=== PATIENT | male | born 1960 | race Caucasian/White ===

== ENCOUNTER → 2019-07-02 | Outpatient (CLI) | payer BC, SELFPAY ==
--- NOTE | 2019-07-02 08:00 | PROSBIL_PTH ---
PATIENT: JERAMY HOLLINGSWORTH LOC: [facility] U#:[id number] AGE/SX: 58/M ROOM: RE07/02/[address]: Dr. Nehemias Zelaya MD : 1960 BED: DIS: 07/02/2019 SPEC #: [id number] RECD: 07/02/19 17:14 STATUS: KRISTIE REQ #: [id number] KARI: 07/02/19 08:[address]: Nehemias Zelaya DEPT: SURGICAL PATHOLOGY RECD BY: Rafael Gallardo ENTERED: 07/03/19 14:07 SP TYPE: PROST BX HERB DR: Dr. Kaden Duarte MD Tissues: A - PROSTATE RIGHT B - PROSTATE RIGHT C - PROSTATE RIGHT D - PROSTATE LEFT E - PROSTATE LEFT F - PROSTATE LEFT Procedures: PROSTATE BX HEADER OPERATION: Prostate biopsy PRE-OP DIAGNOSIS: R97.20 TISSUE SUBMITTED: A-Right apex, B-Right mid, C-Right base, D-Left apex, E-Left mid, F-Left base MICROSCOPIC DIAGNOSIS A. Prostate, right apex, core biopsy: Prostatic tissue, negative for malignancy. Focal mild chronic inflammation. B. Prostate, right mid, core biopsy: Prostatic tissue, negative for malignancy. Focal atrophy and mild acute and chronic inflammation. C. Prostate, right base, core biopsy: Prostatic tissue, negative for malignancy. Focal mild chronic inflammation. D. Prostate, left apex, core biopsy: Prostatic tissue, negative for malignancy. Focal atrophy and mild acute and chronic inflammation. E. Prostate, left mid, core biopsy: Prostate tissue, negative for malignancy. F. Prostate, left base, core biopsy: Prostatic tissue, negative for malignancy. Focal atrophy. ELICEO:haley 07/04/19 MICROSCOPIC DESCRIPTION Slides are reviewed. GROSS DESCRIPTION A - Received is one container designated prostate, right apex. The specimen consists of two elongated fragments of light [place]-white soft tissue each measuring 1 and 1.2 cm in length and 0.1 cm in diameter. The specimen is totally submitted in one cassette. B - Received is one container designated prostate, right mid. The specimen consists of two elongated fragments of light [place]-white soft tissue each measuring 1 cm in length and 0.1 cm in diameter. The specimen is totally submitted in one cassette. C - Received is one container designated prostate, right base. The specimen consists of two elongated fragments of light [place]-white soft tissue each measuring 1 and 1.2 cm in length and 0.1 cm in diameter. The specimen is totally submitted in one cassette. D - Received is one container designated prostate, left apex. The specimen consists of one elongated fragment of light [place]-white soft tissue each measuring 1 cm in length and 0.1 cm in diameter. The specimen is totally submitted in one cassette. E - Received is one container designated prostate, left mid. The specimen consists of two elongated fragments of light [place]-white soft tissue each measuring 1 and 1.2 cm in length and 0.1 cm in diameter. The specimen is totally submitted in one cassette. F - Received is one container designated prostate, left base. The specimen consists of two elongated fragments of light [place]-white soft tissue each measuring 1.2 cm in length and 0.1 cm in diameter. The specimen is totally submitted in one cassette. / SJ:sp 07/03/19 TC: 3 CPT: 23554 x6
== END | disposition home or self-care (01) ==
LOC: LABSPEC 07-03 09:35
PROVIDERS: Family Provider Family Medicine; PCP Family Medicine; Referring Provider Urology; Visit Provider Urology
DX: R97.20 Elevated prostate specific antigen [PSA] (principal)
CPT/HCPCS: 88305; G0416

== ENCOUNTER → 2023-03-28 | Outpatient (CLI) | payer BC, SELFPAY ==
[2023-03-28 11:18] LABS: PSA,Total- Diagnostic 4.73 ng/mL (0.0-4.0)
== END | disposition home or self-care (01) ==
LOC: LAB 09:21
PROVIDERS: PCP Student in an Organized Health Care Education/Training Program; Referring Provider Urology; Visit Provider Urology
DX: R97.20 Elevated prostate specific antigen [PSA] (principal)
CPT/HCPCS: 36415; 84153

== ENCOUNTER → 2025-04-15 | Outpatient (CLI) | payer BC, SELFPAY ==
[2025-04-15 10:48] LABS: PSA,Total- Diagnostic 6.05 ng/mL (0.00-4.00)
== END | disposition home or self-care (01) ==
PROVIDERS: PCP Student in an Organized Health Care Education/Training Program; Referring Provider Urology; Visit Provider Urology
DX: R97.20 Elevated prostate specific antigen [PSA] (principal)
CPT/HCPCS: 36415; 84153